=== PATIENT | female | born 1995 | race Caucasian/White ===

== ENCOUNTER 2017-02-16 14:28 | Inpatient (IN) | payer MEDICAID, OTHER ==
[~2017-02-16] VITALS: Ht 165.1 cm; Wt 59.0 kg
[~2017-02-16 14:28] MED LIST: FLUO10CA21 PO
[2017-02-16 16:48] LABS: AMPHET/METH SCREEN,URINE NEGATIVE (NEGATIVE); BARBITURATE SCREEN, URINE NEGATIVE (NEGATIVE); BENZODIAZEPINES SCREEN,URINE NEGATIVE (NEGATIVE); CANNABINOID SCREEN,URINE POSITIVE (NEGATIVE); COCAINE SCREEN,URINE NEGATIVE (NEGATIVE); METHADONE SCREEN, URINE NEGATIVE (NEGATIVE); OPIATE SCREEN,URINE NEGATIVE (NEGATIVE)
[2017-02-16 16:50] LABS: PHENCYCLIDINE SCREEN,URINE NEGATIVE (NEGATIVE)
[2017-02-16] MEDS ORDERED: LORazepam 2 MG/ML VIAL IM ONE (18:15)
[2017-02-16] MEDS ORDERED: HALOPERIDOL LACTATE 5 MG/ML VIAL IM ONE (18:15)
[2017-02-16] MEDS ORDERED: DiphenhydrAMINE HCL 50 MG/ML VIAL IM ONE (18:15)
[2017-02-16] MEDS ORDERED: ZOLPIDEM TARTRATE 10 MG TABLET PO PRN (18:30)
[2017-02-16 18:52] LABS: BASOPHILS % (AUTO) 0.3 % (0.0-2.0); EOSINOPHILS % (AUTO) 0.7 % (1.0-6.0); HEMATOCRIT 39.6 % (36-46); HEMOGLOBIN 13.4 g/dL (12.0-16.0); LYMPHOCYTES # (AUTO) 2.4 K/uL (1.0-4.8); LYMPHOCYTES % (AUTO) 21.9 % (22.0-44.0); MEAN CORPUSCULAR HEMOGLOBIN 32.2 pg (26.0-34.0); MEAN CORPUSCULAR HGB CONC 33.8 G/dL (31.0-37.0); MEAN CORPUSCULAR VOLUME 95 fL (80-100); MONOCYTES # (AUTO) 0.7 K/uL (0.1-1.0); MONOCYTES % (AUTO) 6.6 % (2.0-9.0); NEUTROPHILS # (AUTO) 7.6 K/uL (1.8-7.7); NEUTROPHILS % (AUTO) 70.5 % (40.0-70.0); PLATELET COUNT (AUTO) 240 K/uL (150-450); RED BLOOD CELL COUNT(AUTO) 4.15 MIL/uL (4.00-5.20); RED CELL DISTRIBUTION WIDTH 12.7 % (11.5-14.5)
[2017-02-16 19:07] LABS: ANION GAP 8 mmol/L (8-16); CALCIUM, TOTAL 9.4 mg/dL (8.8-10.5); CARBON DIOXIDE 29 mmol/L (22-29); CHLORIDE 101 mmol/L (98-107); CREATININE 0.65 mg/dL (0.60-1.30); GLOMERULAR FILTR. RATE CALC > 60 mL/min (>60); GLUCOSE,RANDOM 114 mg/dL (70-110); POTASSIUM 3.6 mmol/L (3.5-5.1); SODIUM SERUM 138 mmol/L (136-145); UREA NITROGEN, BLOOD 11 mg/dL (7-18)
[2017-02-16 19:11] LABS: ALANINE AMINOTRANSFERASE 28 U/L (12-78); ALBUMIN 3.5 g/dL (3.4-5.0); ALKALINE PHOSPHATASE 70 U/L (46-116); ASPARTATE AMINOTRANSFERASE 17 U/L (15-37); BILIRUBIN,TOTAL 0.3 mg/dL (0.1-1.0); TOTAL PROTEIN, SERUM 6.5 g/dL (6.4-8.2)
[2017-02-17 08:20] LABS: CHOL/HDL RATIO 3.4 (3.9-5.7)
[2017-02-17 12:01] VITALS: BP 110/64
[2017-02-17] MEDS ORDERED: INFLUENZA VIRUS VACCINE QVS 2017-18 (3YR+)/PF 60 MCG/0.5 ML SYRINGE IM ONE (12:30)
[2017-02-17] MEDS: HALOPERIDOL 5 MG TABLET PO PRN (13:25)
[2017-02-17] MEDS: LORazepam 2 MG TABLET PO PRN (13:26)
[2017-02-17 16:07] VITALS: BP 104/60
[2017-02-18 05:24] VITALS: BP 101/60
[2017-02-18] MEDS: LORazepam 2 MG TABLET PO PRN ×2 (05:47→16:04)
[2017-02-18] MEDS ORDERED: MAG HYDROX/AL HYDROX/SIMETH ES 30 ML SUSPENSION UDCUP PO PRN (08:00)
[2017-02-18] MEDS ORDERED: BENZOCAINE/MENTHOL LOZENGE MM PRN (08:00)
[2017-02-18] MEDS ORDERED: PETROLATUM,WHITE 71 GM JELLY TP PRN (08:00)
[2017-02-18] MEDS ORDERED: BACITRACIN 28.4 GM OINTMENT TP PRN (08:00)
[2017-02-18] MEDS ORDERED: MAGNESIUM HYDROXIDE SUSPENSION 30 ML UDCUP PO PRN (08:00)
[2017-02-18] MEDS ORDERED: ACETAMINOPHEN 325 MG TABLET PO PRN (08:00)
[2017-02-18] MEDS ORDERED: LOPERAMIDE HCL 2 MG CAPSULE PO PRN (08:00)
[2017-02-18] MEDS ORDERED: ONDANSETRON HCL 4 MG TABLET PO PRN (08:00)
[2017-02-18] MEDS ORDERED: IBUPROFEN 600 MG TABLET PO PRN (08:00)
[2017-02-18] MEDS ORDERED: CloNIDine HCL 0.1 MG TABLET PO PRN (08:00)
[2017-02-18] MEDS ORDERED: ALBUTEROL SULFATE HFA 90 MCG/PUFF 8 GM INHALER IH PRN (08:00)
[2017-02-18 08:30] VITALS: BP 118/71
[2017-02-18] MEDS ORDERED: SERTRALINE HCL 50 MG TABLET PO SCH (09:00)
[2017-02-18] MEDS: NICOTINE 21 MG/24 HOUR PATCH TD SCH (09:01)
[2017-02-18] MEDS: HALOPERIDOL 5 MG TABLET PO PRN (16:05)
[2017-02-18 16:42] VITALS: BP 115/75
[2017-02-19 06:15] VITALS: BP 113/75
[2017-02-19 08:42] VITALS: BP 103/60
[2017-02-19] MEDS ORDERED: SERTRALINE HCL 100 MG TABLET PO SCH (09:00)
[2017-02-19] MEDS: NICOTINE 21 MG/24 HOUR PATCH TD SCH (09:15)
[2017-02-19] MEDS: LORazepam 2 MG TABLET PO PRN (10:11)
[2017-02-19] MEDS ORDERED: SERT100T12 PO (11:19)
== END 2017-02-19 14:11 | disposition home or self-care (01) | DRG 753 ==
LOC: EMS 14:32 → B3A 02-17 10:33
PROVIDERS: ADMIT Psychiatry & Neurology Child & Adolescent Psychiatry; ATTEND Psychiatry & Neurology Child & Adolescent Psychiatry
PROC: 3E0234Z Introduction of Serum, Toxoid and Vaccine into Muscle, Percutaneous Approach (ICD-10-PCS; principal; 2017-02-17)
DX: F31.9 Bipolar disorder, unspecified (principal); R45.851 Suicidal ideations; F17.200 Nicotine dependence, unspecified, uncomplicated; F12.90 Cannabis use, unspecified, uncomplicated; F42.9 Obsessive-compulsive disorder, unspecified; Z76.5 Malingerer [conscious simulation]; Z88.2 Allergy status to sulfonamides; Z23 Encounter for immunization
CPT/HCPCS: 87081; 90471; 96372; 99285; G0480

== ENCOUNTER 2018-02-22 15:39 | Inpatient (IN) | payer MEDICAID ==
[~2018-02-22] VITALS: Ht 165.1 cm; Wt 65.3 kg
[~2018-02-22 15:39] MED LIST changes: -FLUO10CA21 PO; +PREN1TAB89 PO
[2018-02-22 16:09] VITALS: BP 114/73
[2018-02-22] MEDS ORDERED: HALOPERIDOL 5 MG TABLET PO PRN (16:15)
[2018-02-22] MEDS ORDERED: MIRT15 PO (16:33)
[2018-02-22] MEDS ORDERED: NICOTINE 14 MG/24 HOUR PATCH TD PRN (17:30)
[2018-02-22] MEDS ORDERED: MAG HYDROX/AL HYDROX/SIMETH ES 30 ML SUSPENSION UDCUP PO PRN (17:30)
[2018-02-22] MEDS ORDERED: MAGNESIUM HYDROXIDE SUSPENSION 30 ML UDCUP PO PRN (17:30)
[2018-02-22] MEDS ORDERED: LOPERAMIDE HCL 2 MG CAPSULE PO PRN (17:30)
[2018-02-22] MEDS ORDERED: PETROLATUM,WHITE 71 GM JELLY TP PRN (17:30)
[2018-02-22] MEDS ORDERED: CloNIDine HCL 0.1 MG TABLET PO PRN (17:30)
[2018-02-22] MEDS ORDERED: DOCUSATE SODIUM 100 MG CAPSULE PO PRN (17:30)
[2018-02-22] MEDS ORDERED: ACETAMINOPHEN 325 MG TABLET PO PRN (17:30)
[2018-02-22] MEDS ORDERED: ALBUTEROL SULFATE HFA 90 MCG/PUFF 8 GM INHALER IH PRN (17:30)
[2018-02-22] MEDS ORDERED: GuaiFENesin/D-METHORPHAN [SUGAR-FREE] 200-20MG/10 ML SYRUP UDCUP PO PRN (17:30)
[2018-02-22 20:04] VITALS: BP 117/70
[2018-02-23 06:11] VITALS: BP 120/81
[2018-02-23 07:56] LABS: BASOPHILS % (AUTO) 0.5 % (0.0-2.0); HEMATOCRIT 38.1 % (36-46); HEMOGLOBIN 12.5 g/dL (12.0-16.0); LYMPHOCYTES % (AUTO) 40.7 % (22.0-44.0); MEAN CORPUSCULAR HEMOGLOBIN 30.6 pg (26.0-34.0); MEAN CORPUSCULAR HGB CONC 32.8 G/dL (31.0-37.0); MEAN CORPUSCULAR VOLUME 94 fL (80-100); MONOCYTES # (AUTO) 0.7 K/uL (0.1-1.0); MONOCYTES % (AUTO) 9.1 % (2.0-9.0); NEUTROPHILS # (AUTO) 3.5 K/uL (1.8-7.7); NEUTROPHILS % (AUTO) 47.7 % (40.0-70.0); PLATELET COUNT (AUTO) 216 K/uL (150-450); RED BLOOD CELL COUNT(AUTO) 4.07 MIL/uL (4.00-5.20); RED CELL DISTRIBUTION WIDTH 13.1 % (11.5-14.5)
[2018-02-23 08:25] VITALS: BP_SYST 107; BP_SYST 90; BP_DIAS 56; BP_DIAS 60
[2018-02-23 08:26] LABS: ALANINE AMINOTRANSFERASE 24 U/L (12-78); ALBUMIN 3.2 g/dL (3.4-5.0); ALKALINE PHOSPHATASE 42 U/L (46-116); ANION GAP 6 mmol/L (8-16); ASPARTATE AMINOTRANSFERASE 22 U/L (15-37); BILIRUBIN,TOTAL 0.4 mg/dL (0.1-1.0); CALCIUM, TOTAL 8.7 mg/dL (8.8-10.5); CARBON DIOXIDE 28 mmol/L (22-29); CHLORIDE 107 mmol/L (98-107); CHOL/HDL RATIO 2.8 (3.9-5.7); CHOLESTEROL 112 mg/dL (131-200); CREATININE 0.46 mg/dL (0.60-1.30); GLOMERULAR FILTR. RATE CALC > 60 mL/min (>60); GLUCOSE,RANDOM 83 mg/dL (70-110); HCG,QUANTITATIVE < 1 mIU/mL (0-6); HDL CHOLESTEROL 40 mg/dL (40-60); LDL CHOL (CALC.) 66 mg/dL (0-130); POTASSIUM 4.3 mmol/L (3.5-5.1); SODIUM SERUM 141 mmol/L (136-145); THYROID STIMULATING HORMONE 0.28 uIU/mL (0.36-3.74); TOTAL PROTEIN, SERUM 5.7 g/dL (6.4-8.2); TRIGLYCERIDES 31 mg/dL (15-150); UREA NITROGEN, BLOOD 9 mg/dL (7-18)
[2018-02-23 08:30] LABS: AMPHET/METH SCREEN,URINE POSITIVE (NEGATIVE); BARBITURATE SCREEN, URINE NEGATIVE (NEGATIVE); BENZODIAZEPINES SCREEN,URINE NEGATIVE (NEGATIVE); CANNABINOID SCREEN,URINE POSITIVE (NEGATIVE); COCAINE SCREEN,URINE NEGATIVE (NEGATIVE); METHADONE SCREEN, URINE NEGATIVE (NEGATIVE); OPIATE SCREEN,URINE POSITIVE (NEGATIVE)
[2018-02-23 08:34] LABS: PHENCYCLIDINE SCREEN,URINE NEGATIVE (NEGATIVE)
[2018-02-23 08:38] LABS: HEMOGLOBIN A1C 5.2 % (4.5-6.2)
[2018-02-23 09:08] LABS: APPEARANCE,URINE TURBID (CLEAR); BILIRUBIN,URINE NEGATIVE (NEGATIVE); GLUCOSE, URINE (UA) NEGATIVE (NEGATIVE); KETONES,URINE NEGATIVE (NEGATIVE); LEUKOCYTE ESTERASE ,URINE LARGE (NEGATIVE); NITRATE,URINE NEGATIVE (NEGATIVE); OCCULT BLOOD,URINE NEGATIVE (NEGATIVE); PH,URINE 5.5 (5.0-8.0); PROTEIN,URINE NEGATIVE (NEGATIVE); UROBILINOGEN,URINE 0.2 mg/dL (<=1.0)
[2018-02-23] MEDS: BACITRACIN 28.4 GM OINTMENT TP SCH ×2 (09:17→16:10)
[2018-02-23] MEDS: DOXYCYCLINE HYCLATE 100 MG CAPSULE PO SCH ×2 (09:17→16:10)
[2018-02-23 11:32] LABS: BACTERIA,URINE Moderate /HPF (None Seen); SQUAMOUS EPITHELIAL CELL,UR Moderate /LPF (None Seen)
[2018-02-23] MEDS: CEPHALEXIN MONOHYDRATE 500 MG CAPSULE PO SCH ×2 (14:09→16:10)
[2018-02-23 16:48] VITALS: BP 121/71
[2018-02-23] MEDS: SERTRALINE HCL 100 MG TABLET PO SCH (20:00)
[2018-02-23] MEDS: ZOLPIDEM TARTRATE 5 MG TABLET PO PRN (20:05)
[2018-02-24 00:45] VITALS: BP 110/65
[2018-02-24 08:42] VITALS: BP 114/66
[2018-02-24] MEDS: BACITRACIN 28.4 GM OINTMENT TP SCH ×2 (09:19→16:49)
[2018-02-24] MEDS: CEPHALEXIN MONOHYDRATE 500 MG CAPSULE PO SCH ×3 (09:19→16:56)
[2018-02-24] MEDS: DOXYCYCLINE HYCLATE 100 MG CAPSULE PO SCH ×2 (09:19→16:49)
[2018-02-24] MEDS: ONDANSETRON HCL 4 MG TABLET PO PRN (11:00)
[2018-02-24 17:11] VITALS: BP 104/61
[2018-02-24] MEDS: SERTRALINE HCL 100 MG TABLET PO SCH (20:24)
[2018-02-24] MEDS: ZOLPIDEM TARTRATE 5 MG TABLET PO PRN (20:40)
[2018-02-25 03:18] VITALS: BP 137/79
[2018-02-25 08:17] VITALS: BP 123/76
[2018-02-25] MEDS: DOXYCYCLINE HYCLATE 100 MG CAPSULE PO SCH ×2 (08:34→16:12)
[2018-02-25] MEDS: CEPHALEXIN MONOHYDRATE 500 MG CAPSULE PO SCH ×3 (08:34→16:12)
[2018-02-25] MEDS: BACITRACIN 28.4 GM OINTMENT TP SCH ×2 (08:34→17:00)
[2018-02-25 16:11] VITALS: BP 103/69
[2018-02-25] MEDS: SERTRALINE HCL 100 MG TABLET PO SCH (20:22)
[2018-02-25] MEDS: ZOLPIDEM TARTRATE 5 MG TABLET PO PRN (20:22)
[2018-02-26 06:18] VITALS: BP 110/68
[2018-02-26 08:06] VITALS: BP 116/62
[2018-02-26] MEDS: DOXYCYCLINE HYCLATE 100 MG CAPSULE PO SCH ×2 (09:23→16:03)
[2018-02-26] MEDS: BACITRACIN 28.4 GM OINTMENT TP SCH ×2 (09:23→16:03)
[2018-02-26] MEDS: CEPHALEXIN MONOHYDRATE 500 MG CAPSULE PO SCH ×3 (09:23→16:03)
[2018-02-26 16:06] VITALS: BP 121/76
[2018-02-26] MEDS: SERTRALINE HCL 100 MG TABLET PO SCH (19:39)
[2018-02-26] MEDS: TraZODone HCL 100 MG TABLET PO SCH (19:39)
[2018-02-27 00:43] VITALS: BP 102/63
[2018-02-27 08:24] VITALS: BP 100/60
[2018-02-27] MEDS: DOXYCYCLINE HYCLATE 100 MG CAPSULE PO SCH ×2 (08:29→16:25)
[2018-02-27] MEDS: BACITRACIN 28.4 GM OINTMENT TP SCH ×2 (08:29→16:25)
[2018-02-27] MEDS: CEPHALEXIN MONOHYDRATE 500 MG CAPSULE PO SCH ×3 (08:29→16:25)
[2018-02-27 16:13] VITALS: BP 105/69
[2018-02-27] MEDS: TraZODone HCL 100 MG TABLET PO SCH (20:07)
[2018-02-27] MEDS: SERTRALINE HCL 100 MG TABLET PO SCH (20:07)
[2018-02-28 01:27] VITALS: BP 104/65
[2018-02-28] MEDS: CEPHALEXIN MONOHYDRATE 500 MG CAPSULE PO SCH ×3 (08:36→16:12)
[2018-02-28] MEDS: DOXYCYCLINE HYCLATE 100 MG CAPSULE PO SCH ×2 (08:36→16:12)
[2018-02-28] MEDS: BACITRACIN 28.4 GM OINTMENT TP SCH ×2 (08:37→16:12)
[2018-02-28 09:28] VITALS: BP 112/69
[2018-02-28 12:21] VITALS: BP 110/70
[2018-02-28] MEDS: IBUPROFEN 400 MG TABLET PO PRN (12:21)
[2018-02-28 16:09] VITALS: BP 114/74
[2018-02-28] MEDS: LORazepam 2 MG TABLET PO PRN (16:12)
[2018-02-28] MEDS: TraZODone HCL 100 MG TABLET PO SCH (20:14)
[2018-02-28] MEDS: SERTRALINE HCL 100 MG TABLET PO SCH (20:14)
[2018-02-28] MEDS: ZOLPIDEM TARTRATE 5 MG TABLET PO PRN (20:26)
[2018-03-01 00:45] VITALS: BP 103/62
[2018-03-01 08:27] VITALS: BP 106/62
[2018-03-01] MEDS: BACITRACIN 28.4 GM OINTMENT TP SCH ×2 (08:33→16:25)
[2018-03-01] MEDS: CEPHALEXIN MONOHYDRATE 500 MG CAPSULE PO SCH ×3 (08:34→16:24)
[2018-03-01] MEDS: DOXYCYCLINE HYCLATE 100 MG CAPSULE PO SCH ×2 (08:34→16:24)
[2018-03-01 16:27] VITALS: BP 110/66
[2018-03-01] MEDS: LORazepam 2 MG TABLET PO PRN (16:33)
[2018-03-01] MEDS: ONDANSETRON HCL 4 MG TABLET PO PRN (17:28)
[2018-03-01] MEDS: ZOLPIDEM TARTRATE 5 MG TABLET PO PRN (20:12)
[2018-03-01] MEDS: SERTRALINE HCL 100 MG TABLET PO SCH (20:12)
[2018-03-01] MEDS: TraZODone HCL 100 MG TABLET PO SCH (20:12)
[2018-03-01] MEDS: IBUPROFEN 400 MG TABLET PO PRN (21:42)
[2018-03-01 21:45] VITALS: BP 114/70
[2018-03-02 08:11] VITALS: BP 140/76
[2018-03-02] MEDS: BACITRACIN 28.4 GM OINTMENT TP SCH ×2 (09:01→17:05)
[2018-03-02] MEDS: CEPHALEXIN MONOHYDRATE 500 MG CAPSULE PO SCH ×2 (09:01→12:45)
[2018-03-02 16:08] VITALS: BP 114/64
[2018-03-02] MEDS: LORazepam 2 MG TABLET PO PRN (20:19)
[2018-03-02] MEDS: TraZODone HCL 100 MG TABLET PO SCH (20:54)
[2018-03-02] MEDS: SERTRALINE HCL 100 MG TABLET PO SCH (20:54)
[2018-03-03 06:15] VITALS: BP 128/82
[2018-03-03 08:24] VITALS: BP 100/60
[2018-03-03] MEDS: BACITRACIN 28.4 GM OINTMENT TP SCH ×2 (08:36→17:21)
[2018-03-03 16:11] VITALS: BP 110/67
[2018-03-03] MEDS: SERTRALINE HCL 100 MG TABLET PO SCH (20:02)
[2018-03-03] MEDS: TraZODone HCL 100 MG TABLET PO SCH (20:02)
[2018-03-03] MEDS: ZOLPIDEM TARTRATE 5 MG TABLET PO PRN (21:17)
[2018-03-04 06:20] VITALS: BP 118/71
[2018-03-04 08:28] VITALS: BP 102/60
[2018-03-04] MEDS: BACITRACIN 28.4 GM OINTMENT TP SCH ×2 (09:25→17:02)
[2018-03-04 18:34] VITALS: BP 100/62
[2018-03-04] MEDS ORDERED: LORazepam 2 MG TABLET PO PRN (18:45)
[2018-03-04] MEDS ORDERED: ZOLPIDEM TARTRATE 5 MG TABLET PO PRN (18:45)
[2018-03-04] MEDS: SERTRALINE HCL 100 MG TABLET PO SCH (20:16)
[2018-03-04] MEDS: TraZODone HCL 100 MG TABLET PO SCH (20:16)
[2018-03-05 07:18] VITALS: BP 110/68
[2018-03-05 08:06] VITALS: BP 103/65
[2018-03-05 17:50] VITALS: BP 112/65
[2018-03-05] MEDS: IBUPROFEN 400 MG TABLET PO PRN (17:51)
[2018-03-05] MEDS: SERTRALINE HCL 100 MG TABLET PO SCH (20:05)
[2018-03-05] MEDS: TraZODone HCL 100 MG TABLET PO SCH (20:06)
[2018-03-06 04:52] VITALS: BP 109/75
[2018-03-06 08:07] VITALS: BP 100/64
[2018-03-06] MEDS ORDERED: SERT100T12 PO (12:58)
[2018-03-06] MEDS ORDERED: TRAZ-220 PO (12:58)
== END 2018-03-06 14:15 | disposition home or self-care (01) | DRG 751 ==
LOC: B2S 16:28 → B3A 03-01 21:42
PROVIDERS: ADMIT Psychiatry & Neurology Psychiatry; ATTEND Psychiatry & Neurology Psychiatry
DX: F33.2 Major depressive disorder, recurrent severe without psychotic features (principal); E32.8 Other diseases of thymus; R45.851 Suicidal ideations; F10.10 Alcohol abuse, uncomplicated; F12.90 Cannabis use, unspecified, uncomplicated; F41.9 Anxiety disorder, unspecified; F19.10 Other psychoactive substance abuse, uncomplicated; N39.0 Urinary tract infection, site not specified; Z71.41 Alcohol abuse counseling and surveillance of alcoholic; Z79.899 Other long term (current) drug therapy; Z71.51 Drug abuse counseling and surveillance of drug abuser
CPT/HCPCS: 80307; 83036; 84439; 84443; 87086; Q0162

== ENCOUNTER 2018-05-08 18:31 | Inpatient (IN) | payer MEDICAID ==
[~2018-05-08] VITALS: Ht 165.1 cm; Wt 65.9 kg
[~2018-05-08 18:31] MED LIST changes: -PREN1TAB89 PO; +SERT100T12 PO; +TRAZ-220 PO
[2018-05-08] MEDS ORDERED: HALOPERIDOL 5 MG TABLET PO PRN (19:00)
[2018-05-08 20:30] VITALS: BP 128/78
[2018-05-08] MEDS ORDERED: DOCUSATE SODIUM 100 MG CAPSULE PO PRN (20:45)
[2018-05-08] MEDS ORDERED: GuaiFENesin/D-METHORPHAN [SUGAR-FREE] 200-20MG/10 ML SYRUP UDCUP PO PRN (20:45)
[2018-05-08] MEDS ORDERED: NICOTINE 14 MG/24 HOUR PATCH TD PRN (20:45)
[2018-05-08] MEDS ORDERED: ACETAMINOPHEN 325 MG TABLET PO PRN (20:45)
[2018-05-08] MEDS ORDERED: CloNIDine HCL 0.1 MG TABLET PO PRN (20:45)
[2018-05-08] MEDS ORDERED: LOPERAMIDE HCL 2 MG CAPSULE PO PRN (20:45)
[2018-05-08] MEDS ORDERED: ALBUTEROL SULFATE HFA 90 MCG/PUFF 8 GM INHALER IH PRN (20:45)
[2018-05-08] MEDS ORDERED: ONDANSETRON HCL 4 MG TABLET PO PRN (20:45)
[2018-05-08] MEDS ORDERED: IBUPROFEN 400 MG TABLET PO PRN (20:45)
[2018-05-08] MEDS ORDERED: MAG HYDROX/AL HYDROX/SIMETH ES 30 ML SUSPENSION UDCUP PO PRN (20:45)
[2018-05-08] MEDS ORDERED: MAGNESIUM HYDROXIDE SUSPENSION 30 ML UDCUP PO PRN (20:45)
[2018-05-08] MEDS ORDERED: PETROLATUM,WHITE 28 GM JELLY TP PRN (20:45)
[2018-05-08] MEDS: LORazepam 2 MG TABLET PO PRN (22:03)
[2018-05-09 07:11] VITALS: BP 135/89
[2018-05-09 08:24] VITALS: BP 103/61
[2018-05-09 08:52] LABS: BASOPHILS % (AUTO) 0.6 % (0.0-2.0); EOSINOPHILS % (AUTO) 1.9 % (1.0-6.0); HEMATOCRIT 40.5 % (36-46); HEMOGLOBIN 13.4 g/dL (12.0-16.0); LYMPHOCYTES # (AUTO) 3.2 K/uL (1.0-4.8); LYMPHOCYTES % (AUTO) 49.2 % (22.0-44.0); MEAN CORPUSCULAR HEMOGLOBIN 30.4 pg (26.0-34.0); MEAN CORPUSCULAR VOLUME 92 fL (80-100); MONOCYTES # (AUTO) 0.5 K/uL (0.1-1.0); MONOCYTES % (AUTO) 7.8 % (2.0-9.0); NEUTROPHILS # (AUTO) 2.6 K/uL (1.8-7.7); NEUTROPHILS % (AUTO) 40.5 % (40.0-70.0); PLATELET COUNT (AUTO) 204 K/uL (150-450); RED BLOOD CELL COUNT(AUTO) 4.41 MIL/uL (4.00-5.20); RED CELL DISTRIBUTION WIDTH 13.7 % (11.5-14.5)
[2018-05-09 09:44] LABS: HEMOGLOBIN A1C 5.4 % (4.5-6.2)
[2018-05-09 10:00] LABS: ALANINE AMINOTRANSFERASE 22 U/L (12-78); ALBUMIN 3.7 g/dL (3.4-5.0); ALKALINE PHOSPHATASE 57 U/L (46-116); ANION GAP 11 mmol/L (8-16); ASPARTATE AMINOTRANSFERASE 18 U/L (15-37); BILIRUBIN,TOTAL 0.3 mg/dL (0.1-1.0); CALCIUM, TOTAL 9.2 mg/dL (8.8-10.5); CARBON DIOXIDE 23 mmol/L (22-29); CHLORIDE 107 mmol/L (98-107); CHOL/HDL RATIO 2.9 (3.9-5.7); CHOLESTEROL 117 mg/dL (131-200); CREATININE 0.64 mg/dL (0.60-1.30); FREE T4 (FREE THYROXINE) 1.12 ng/dL (0.76-1.46); GLOMERULAR FILTR. RATE CALC > 60 mL/min (>60); GLUCOSE,RANDOM 97 mg/dL (70-110); HCG,QUANTITATIVE < 1 mIU/mL (0-6); HDL CHOLESTEROL 41 mg/dL (40-60); LDL CHOL (CALC.) 70 mg/dL (0-130); POTASSIUM 3.8 mmol/L (3.5-5.1); SODIUM SERUM 141 mmol/L (136-145); THYROID STIMULATING HORMONE 0.88 uIU/mL (0.36-3.74); TOTAL PROTEIN, SERUM 6.5 g/dL (6.4-8.2); TRIGLYCERIDES 32 mg/dL (15-150); UREA NITROGEN, BLOOD 14 mg/dL (7-18)
[2018-05-09] MEDS: LORazepam 2 MG TABLET PO PRN (12:39)
[2018-05-09] MEDS: SERTRALINE HCL 50 MG TABLET PO SCH (12:39)
[2018-05-09 16:00] VITALS: BP 124/60
[2018-05-09] MEDS: RisperiDONE 1 MG TABLET PO SCH (20:28)
[2018-05-09] MEDS: ZOLPIDEM TARTRATE 10 MG TABLET PO PRN (21:16)
[2018-05-10 08:18] VITALS: BP 120/59
[2018-05-10] MEDS: SERTRALINE HCL 50 MG TABLET PO SCH (08:34)
[2018-05-10 16:22] VITALS: BP 124/60
[2018-05-10] MEDS: RisperiDONE 1 MG TABLET PO SCH (20:18)
[2018-05-10] MEDS: ZOLPIDEM TARTRATE 10 MG TABLET PO PRN (21:28)
[2018-05-11 05:14] VITALS: BP 114/71
[2018-05-11 08:32] VITALS: BP 114/59
[2018-05-11] MEDS: SERTRALINE HCL 50 MG TABLET PO SCH (08:33)
[2018-05-11 10:41] LABS: APPEARANCE,URINE CLEAR (CLEAR); BILIRUBIN,URINE NEGATIVE (NEGATIVE); GLUCOSE, URINE (UA) NEGATIVE (NEGATIVE); KETONES,URINE NEGATIVE (NEGATIVE); LEUKOCYTE ESTERASE ,URINE NEGATIVE (NEGATIVE); NITRATE,URINE NEGATIVE (NEGATIVE); OCCULT BLOOD,URINE NEGATIVE (NEGATIVE); PH,URINE 6.5 (5.0-8.0); PROTEIN,URINE NEGATIVE (NEGATIVE); UROBILINOGEN,URINE 0.2 mg/dL (<=1.0)
[2018-05-11 10:51] LABS: AMPHET/METH SCREEN,URINE NEGATIVE (NEGATIVE); BARBITURATE SCREEN, URINE NEGATIVE (NEGATIVE); BENZODIAZEPINES SCREEN,URINE NEGATIVE (NEGATIVE); CANNABINOID SCREEN,URINE NEGATIVE (NEGATIVE); COCAINE SCREEN,URINE NEGATIVE (NEGATIVE); METHADONE SCREEN, URINE NEGATIVE (NEGATIVE); OPIATE SCREEN,URINE NEGATIVE (NEGATIVE)
[2018-05-11 10:52] LABS: PHENCYCLIDINE SCREEN,URINE NEGATIVE (NEGATIVE)
[2018-05-11 17:17] VITALS: BP 110/66
[2018-05-11] MEDS: RisperiDONE 1 MG TABLET PO SCH (20:36)
[2018-05-11] MEDS: ZOLPIDEM TARTRATE 10 MG TABLET PO PRN (21:03)
[2018-05-12 04:19] VITALS: BP 109/60
[2018-05-12 08:30] VITALS: BP 107/64
[2018-05-12] MEDS: SERTRALINE HCL 50 MG TABLET PO SCH ×2 (09:00→09:45)
[2018-05-12] MEDS: DiphenhydrAMINE HCL 25 MG CAPSULE PO PRN ×2 (12:00→19:31)
[2018-05-12 16:50] VITALS: BP 106/65
[2018-05-12] MEDS: RisperiDONE 1 MG TABLET PO SCH (21:12)
[2018-05-12] MEDS: ZOLPIDEM TARTRATE 10 MG TABLET PO PRN (21:12)
[2018-05-13] MEDS: DiphenhydrAMINE HCL 25 MG CAPSULE PO PRN ×2 (03:53→16:17)
[2018-05-13 03:54] VITALS: BP 113/73
[2018-05-13 08:20] VITALS: BP 109/59
[2018-05-13] MEDS: SERTRALINE HCL 50 MG TABLET PO SCH (08:32)
[2018-05-13] MEDS ORDERED: DiphenhydrAMINE HCL 50 MG/ML VIAL IM ONE (09:15)
[2018-05-13] MEDS ORDERED: DiphenhydrAMINE HCL 25 MG CAPSULE PO PRN (12:30)
[2018-05-13] MEDS ORDERED: LORazepam 2 MG/ML VIAL ONE (16:44)
[2018-05-13] MEDS ORDERED: HALOPERIDOL LACTATE 5 MG/ML VIAL ONE (16:44)
[2018-05-13] MEDS ORDERED: HALOPERIDOL LACTATE 5 MG/ML VIAL IM ONE (16:45)
[2018-05-13] MEDS ORDERED: LORazepam 2 MG/ML VIAL IM ONE (16:45)
[2018-05-14 08:17] VITALS: BP 100/61
[2018-05-14] MEDS: DiphenhydrAMINE HCL 25 MG CAPSULE PO PRN ×2 (08:53→16:59)
[2018-05-14] MEDS ORDERED: SERTRALINE HCL 100 MG TABLET PO SCH (09:00)
[2018-05-14] MEDS ORDERED: DiphenhydrAMINE HCL 50 MG/ML VIAL IM ONE (09:30)
[2018-05-14 16:55] VITALS: BP 110/64
[2018-05-14] MEDS: ZOLPIDEM TARTRATE 10 MG TABLET PO PRN (21:15)
[2018-05-15 00:07] VITALS: BP 101/62
[2018-05-15] MEDS ORDERED: SERT100T12 PO (04:07)
[2018-05-15] MEDS: DiphenhydrAMINE HCL 25 MG CAPSULE PO PRN (04:25)
== END 2018-05-15 06:35 | disposition home or self-care (01) | DRG 751 ==
LOC: B3A 19:00
DX: F33.3 Major depressive disorder, recurrent, severe with psychotic symptoms (principal); F79 Unspecified intellectual disabilities; F10.10 Alcohol abuse, uncomplicated; F15.10 Other stimulant abuse, uncomplicated; G43.909 Migraine, unspecified, not intractable, without status migrainosus; Z91.5 Personal history of self-harm; F41.9 Anxiety disorder, unspecified; F63.9 Impulse disorder, unspecified; R00.0 Tachycardia, unspecified
CPT/HCPCS: 80307; 83036; 84439; 84443; J1200; J1630; J2060

== ENCOUNTER 2018-08-11 11:32 | Emergency (ER) | payer MEDICAID, OTHER ==
[~2018-08-11] VITALS: Ht 165.1 cm; Wt 59.1 kg
[~2018-08-11 11:32] MED LIST changes: -TRAZ-220 PO
[2018-08-11 13:30] LABS: APPEARANCE,URINE TURBID (CLEAR); BILIRUBIN,URINE NEGATIVE (NEGATIVE); GLUCOSE, URINE (UA) NEGATIVE (NEGATIVE); KETONES,URINE NEGATIVE (NEGATIVE); NITRATE,URINE NEGATIVE (NEGATIVE); OCCULT BLOOD,URINE NEGATIVE (NEGATIVE); PROTEIN,URINE NEGATIVE (NEGATIVE); UROBILINOGEN,URINE 0.2 mg/dL (<=1.0)
[2018-08-11 13:37] LABS: LEUKOCYTE ESTERASE ,URINE MODERATE (NEGATIVE)
[2018-08-11 13:38] LABS: BACTERIA,URINE Many /HPF (None Seen); RBC,URINE 0-2 /HPF (0-2); SQUAMOUS EPITHELIAL CELL,UR Many /LPF (None Seen)
[2018-08-11 13:41] LABS: BASOPHILS % (AUTO) 0.6 % (0.0-2.0); HEMATOCRIT 42.7 % (36-46); HEMOGLOBIN 13.9 g/dL (12.0-16.0); LYMPHOCYTES # (AUTO) 2.1 K/uL (1.0-4.8); LYMPHOCYTES % (AUTO) 35.3 % (22.0-44.0); MEAN CORPUSCULAR HEMOGLOBIN 31.2 pg (26.0-34.0); MEAN CORPUSCULAR HGB CONC 32.6 G/dL (31.0-37.0); MEAN CORPUSCULAR VOLUME 96 fL (80-100); MONOCYTES # (AUTO) 0.4 K/uL (0.1-1.0); MONOCYTES % (AUTO) 6.7 % (2.0-9.0); NEUTROPHILS # (AUTO) 3.3 K/uL (1.8-7.7); NEUTROPHILS % (AUTO) 56.4 % (40.0-70.0); PLATELET COUNT (AUTO) 217 K/uL (150-450); RED BLOOD CELL COUNT(AUTO) 4.46 MIL/uL (4.00-5.20); RED CELL DISTRIBUTION WIDTH 13.7 % (11.5-14.5)
[2018-08-11 13:51] LABS: ANION GAP 13 mmol/L (8-16); CALCIUM, TOTAL 9.3 mg/dL (8.8-10.5); CARBON DIOXIDE 26 mmol/L (22-29); CHLORIDE 107 mmol/L (98-107); CREATININE 0.57 mg/dL (0.60-1.30); GLOMERULAR FILTR. RATE CALC > 60 mL/min (>60); GLUCOSE,RANDOM 91 mg/dL (70-110); POTASSIUM 3.8 mmol/L (3.5-5.1); SODIUM SERUM 146 mmol/L (136-145); UREA NITROGEN, BLOOD 8 mg/dL (7-18)
[2018-08-11 13:54] VITALS: BP 119/64
== END 2018-08-11 14:31 | disposition home or self-care (01) ==
LOC: EMS 11:33
DX: N39.0 Urinary tract infection, site not specified (principal); F31.9 Bipolar disorder, unspecified; F12.90 Cannabis use, unspecified, uncomplicated; F17.210 Nicotine dependence, cigarettes, uncomplicated; Z88.2 Allergy status to sulfonamides
CPT/HCPCS: 87086

== ENCOUNTER 2018-10-05 16:12 | Inpatient (IN) | payer MEDICAID ==
[~2018-10-05] VITALS: Ht 165.1 cm; Wt 58.1 kg
[2018-10-05] MEDS ORDERED: LORazepam 2 MG TABLET PO PRN (18:00)
[2018-10-05] MEDS ORDERED: HALOPERIDOL 5 MG TABLET PO PRN (18:00)
[2018-10-05] MEDS ORDERED: ZOLPIDEM TARTRATE 10 MG TABLET PO PRN (18:00)
[2018-10-05 18:03] VITALS: BP 122/98
[2018-10-05 18:42] VITALS: BP 128/81
[2018-10-05] MEDS ORDERED: NICOTINE 14 MG/24 HOUR PATCH TD PRN (19:30)
[2018-10-05] MEDS ORDERED: PETROLATUM,WHITE 28 GM JELLY TP PRN (19:30)
[2018-10-05] MEDS ORDERED: GuaiFENesin/D-METHORPHAN [SUGAR-FREE] 200-20MG/10 ML SYRUP UDCUP PO PRN (19:30)
[2018-10-05] MEDS ORDERED: ACETAMINOPHEN 325 MG TABLET PO PRN (19:30)
[2018-10-05] MEDS ORDERED: ONDANSETRON HCL 4 MG TABLET PO PRN (19:30)
[2018-10-05] MEDS ORDERED: MAGNESIUM HYDROXIDE SUSPENSION 30 ML UDCUP PO PRN (19:30)
[2018-10-05] MEDS ORDERED: LOPERAMIDE HCL 2 MG CAPSULE PO PRN (19:30)
[2018-10-05] MEDS ORDERED: DOCUSATE SODIUM 100 MG CAPSULE PO PRN (19:30)
[2018-10-05] MEDS ORDERED: ALBUTEROL SULFATE HFA 90 MCG/PUFF 8 GM INHALER IH PRN (19:30)
[2018-10-05] MEDS ORDERED: MAG HYDROX/AL HYDROX/SIMETH ES 30 ML SUSPENSION UDCUP PO PRN (19:30)
[2018-10-05] MEDS ORDERED: CloNIDine HCL 0.1 MG TABLET PO PRN (19:30)
[2018-10-06 06:55] VITALS: BP 126/77
[2018-10-06 08:19] LABS: BASOPHILS % (AUTO) 0.6 % (0.0-2.0); EOSINOPHILS % (AUTO) 1.8 % (1.0-6.0); HEMATOCRIT 39.3 % (36-46); HEMOGLOBIN 12.9 g/dL (12.0-16.0); LYMPHOCYTES # (AUTO) 3.6 K/uL (1.0-4.8); LYMPHOCYTES % (AUTO) 48.1 % (22.0-44.0); MEAN CORPUSCULAR HEMOGLOBIN 31.4 pg (26.0-34.0); MEAN CORPUSCULAR HGB CONC 32.9 G/dL (31.0-37.0); MEAN CORPUSCULAR VOLUME 95 fL (80-100); MONOCYTES # (AUTO) 0.6 K/uL (0.1-1.0); MONOCYTES % (AUTO) 7.4 % (2.0-9.0); NEUTROPHILS # (AUTO) 3.1 K/uL (1.8-7.7); NEUTROPHILS % (AUTO) 42.1 % (40.0-70.0); PLATELET COUNT (AUTO) 209 K/uL (150-450); RED BLOOD CELL COUNT(AUTO) 4.12 MIL/uL (4.00-5.20); RED CELL DISTRIBUTION WIDTH 12.5 % (11.5-14.5)
[2018-10-06 08:25] VITALS: BP 117/66
[2018-10-06 08:32] LABS: HEMOGLOBIN A1C 5.2 % (4.5-6.2)
[2018-10-06 08:58] LABS: APPEARANCE,URINE CLEAR (CLEAR); BILIRUBIN,URINE NEGATIVE (NEGATIVE); GLUCOSE, URINE (UA) NEGATIVE (NEGATIVE); KETONES,URINE TRACE mg/dL (NEGATIVE); LEUKOCYTE ESTERASE ,URINE NEGATIVE (NEGATIVE); NITRATE,URINE NEGATIVE (NEGATIVE); OCCULT BLOOD,URINE NEGATIVE (NEGATIVE); PROTEIN,URINE NEGATIVE (NEGATIVE); UROBILINOGEN,URINE 0.2 mg/dL (<=1.0)
[2018-10-06 09:05] LABS: AMPHET/METH SCREEN,URINE POSITIVE (NEGATIVE); BARBITURATE SCREEN, URINE NEGATIVE (NEGATIVE); BENZODIAZEPINES SCREEN,URINE NEGATIVE (NEGATIVE); CANNABINOID SCREEN,URINE POSITIVE (NEGATIVE); COCAINE SCREEN,URINE POSITIVE (NEGATIVE); METHADONE SCREEN, URINE NEGATIVE (NEGATIVE); OPIATE SCREEN,URINE NEGATIVE (NEGATIVE)
[2018-10-06 09:10] LABS: PHENCYCLIDINE SCREEN,URINE NEGATIVE (NEGATIVE)
[2018-10-06 09:59] LABS: ALANINE AMINOTRANSFERASE 12 U/L (12-78); ALBUMIN 3.7 g/dL (3.4-5.0); ALKALINE PHOSPHATASE 41 U/L (46-116); ANION GAP 13 mmol/L (8-16); ASPARTATE AMINOTRANSFERASE 16 U/L (15-37); BILIRUBIN,TOTAL 0.5 mg/dL (0.1-1.0); CALCIUM, TOTAL 9.4 mg/dL (8.8-10.5); CARBON DIOXIDE 24 mmol/L (22-29); CHLORIDE 102 mmol/L (98-107); CHOL/HDL RATIO 3.1 (3.9-5.7); CHOLESTEROL 147 mg/dL (131-200); CREATININE 0.72 mg/dL (0.60-1.30); GLOMERULAR FILTR. RATE CALC > 60 mL/min (>60); GLUCOSE,RANDOM 90 mg/dL (70-110); HCG,QUANTITATIVE < 1 mIU/mL (0-6); HDL CHOLESTEROL 47 mg/dL (40-60); LDL CHOL (CALC.) 91 mg/dL (0-130); SODIUM SERUM 139 mmol/L (136-145); THYROID STIMULATING HORMONE 0.47 uIU/mL (0.36-3.74); TOTAL PROTEIN, SERUM 6.4 g/dL (6.4-8.2); TRIGLYCERIDES 47 mg/dL (15-150); UREA NITROGEN, BLOOD 13 mg/dL (7-18)
[2018-10-06 10:04] LABS: POTASSIUM 2.8 mmol/L (3.5-5.1)
[2018-10-06] MEDS ORDERED: POTASSIUM CHLORIDE 20 MEQ ER TABLET PO ONE (10:15)
[2018-10-06 16:00] VITALS: BP 117/64
[2018-10-07 06:20] VITALS: BP 109/71
[2018-10-07 08:36] VITALS: BP 119/69
[2018-10-07 16:19] VITALS: BP 116/76
[2018-10-08 06:38] VITALS: BP 110/72
[2018-10-08] MEDS: IBUPROFEN 400 MG TABLET PO PRN (07:13)
[2018-10-08 08:26] VITALS: BP 100/58
[2018-10-08] MEDS: SERTRALINE HCL 50 MG TABLET PO SCH (13:15)
[2018-10-08 16:24] VITALS: BP 134/62
[2018-10-08] MEDS: BENZTROPINE MESYLATE 0.5 MG TABLET PO SCH (16:46)
[2018-10-08] MEDS: FluPHENAZine HCL 10 MG TABLET PO SCH (16:46)
[2018-10-09 06:41] VITALS: BP 129/69
[2018-10-09] MEDS: IBUPROFEN 400 MG TABLET PO PRN (06:46)
[2018-10-09 08:00] VITALS: BP 100/64
[2018-10-09 08:03] LABS: APPEARANCE,URINE CLOUDY (CLEAR); BILIRUBIN,URINE NEGATIVE (NEGATIVE); GLUCOSE, URINE (UA) NEGATIVE (NEGATIVE); KETONES,URINE NEGATIVE (NEGATIVE); LEUKOCYTE ESTERASE ,URINE MODERATE (NEGATIVE); NITRATE,URINE NEGATIVE (NEGATIVE); OCCULT BLOOD,URINE LARGE (NEGATIVE); PH,URINE 6.5 (5.0-8.0); PROTEIN,URINE NEGATIVE (NEGATIVE); UROBILINOGEN,URINE 0.2 mg/dL (<=1.0)
[2018-10-09 08:17] LABS: BACTERIA,URINE None Seen /HPF (None Seen); SQUAMOUS EPITHELIAL CELL,UR Few /LPF (None Seen)
[2018-10-09] MEDS: BENZTROPINE MESYLATE 0.5 MG TABLET PO SCH (08:35)
[2018-10-09] MEDS: FluPHENAZine HCL 10 MG TABLET PO SCH (08:35)
[2018-10-09] MEDS: SERTRALINE HCL 50 MG TABLET PO SCH (08:35)
[2018-10-09] MEDS ORDERED: SERT50TA12 PO (10:30)
[2018-10-09] MEDS ORDERED: BENZ0.5T44 PO (10:30)
[2018-10-09] MEDS ORDERED: FLUP10 PO (10:30)
[2018-10-09] MEDS ORDERED: BENZTROPINE MESYLATE 1 MG TABLET PO ONE (13:15)
[2018-10-09 16:20] VITALS: BP 120/72
== END 2018-10-09 17:52 | disposition home or self-care (01) | DRG 750 ==
LOC: B3A 17:20
PROVIDERS: ADMIT Psychiatry & Neurology Child & Adolescent Psychiatry; ATTEND Psychiatry & Neurology Child & Adolescent Psychiatry
DX: F25.0 Schizoaffective disorder, bipolar type (principal); Z59.0 Homelessness; F19.10 Other psychoactive substance abuse, uncomplicated; F32.9 Major depressive disorder, single episode, unspecified; G44.209 Tension-type headache, unspecified, not intractable; K21.9 Gastro-esophageal reflux disease without esophagitis; F41.9 Anxiety disorder, unspecified; Z71.51 Drug abuse counseling and surveillance of drug abuser
CPT/HCPCS: 80307; 83036; 84132; 84439; 84443; 87086

== ENCOUNTER 2019-03-12 14:28 | Emergency (ER) | payer OTHER ==
[~2019-03-12] VITALS: Ht 165.1 cm; Wt 59.0 kg
[~2019-03-12 14:28] MED LIST changes: +BREX1TAB PO; -SERT100T12 PO
[2019-03-12] MEDS ORDERED: SODIUM CHLORIDE 0.9% 1,000 ML IV ONE (16:04)
[2019-03-12 16:36] LABS: BASOPHILS % (AUTO) 0.7 % (0.0-2.0); EOSINOPHILS % (AUTO) 0.4 % (1.0-6.0); HEMATOCRIT 39.2 % (36-46); HEMOGLOBIN 13.3 g/dL (12.0-16.0); LYMPHOCYTES # (AUTO) 2.6 K/uL (1.0-4.8); LYMPHOCYTES % (AUTO) 19.1 % (22.0-44.0); MEAN CORPUSCULAR HGB CONC 33.8 G/dL (31.0-37.0); MEAN CORPUSCULAR VOLUME 92 fL (80-100); MONOCYTES # (AUTO) 0.8 K/uL (0.1-1.0); MONOCYTES % (AUTO) 5.7 % (2.0-9.0); NEUTROPHILS # (AUTO) 10.1 K/uL (1.8-7.7); NEUTROPHILS % (AUTO) 74.1 % (40.0-70.0); PLATELET COUNT (AUTO) 282 K/uL (150-450); RED BLOOD CELL COUNT(AUTO) 4.29 MIL/uL (4.00-5.20); RED CELL DISTRIBUTION WIDTH 12.5 % (11.5-14.5)
[2019-03-12 16:46] LABS: ANION GAP 9 mmol/L (8-16); CALCIUM, TOTAL 9.4 mg/dL (8.8-10.5); CARBON DIOXIDE 27 mmol/L (22-29); CHLORIDE 101 mmol/L (98-107); CREATININE 0.53 mg/dL (0.60-1.30); GLOMERULAR FILTR. RATE CALC > 60 mL/min (>60); GLUCOSE,RANDOM 108 mg/dL (70-110); POTASSIUM 3.6 mmol/L (3.5-5.1); SODIUM SERUM 137 mmol/L (136-145); UREA NITROGEN, BLOOD 6 mg/dL (7-18)
[2019-03-12 17:03] LABS: ALANINE AMINOTRANSFERASE 40 U/L (12-78); ALBUMIN 3.7 g/dL (3.4-5.0); ALKALINE PHOSPHATASE 75 U/L (46-116); ASPARTATE AMINOTRANSFERASE 22 U/L (15-37); BILIRUBIN,TOTAL 0.3 mg/dL (0.1-1.0); HCG,QUANTITATIVE < 1 mIU/mL (0-6); LIPASE 100 U/L (73-393); TOTAL PROTEIN, SERUM 7.4 g/dL (6.4-8.2)
[2019-03-12 17:19] LABS: LACTIC ACID 1.1 mmol/L (0.4-2.0)
[2019-03-12 17:22] LABS: APPEARANCE,URINE CLOUDY (CLEAR); BILIRUBIN,URINE NEGATIVE (NEGATIVE); GLUCOSE, URINE (UA) NEGATIVE (NEGATIVE); KETONES,URINE NEGATIVE (NEGATIVE); LEUKOCYTE ESTERASE ,URINE LARGE (NEGATIVE); NITRATE,URINE NEGATIVE (NEGATIVE); OCCULT BLOOD,URINE TRACE (NEGATIVE); PH,URINE 6.5 (5.0-8.0); PROTEIN,URINE NEGATIVE (NEGATIVE); UROBILINOGEN,URINE 0.2 mg/dL (<=1.0)
[2019-03-12 17:29] LABS: BACTERIA,URINE Many /HPF (None Seen); SQUAMOUS EPITHELIAL CELL,UR Many /LPF (None Seen)
[2019-03-12 17:30] LABS: AMPHET/METH SCREEN,URINE POSITIVE (NEGATIVE); BARBITURATE SCREEN, URINE NEGATIVE (NEGATIVE); BENZODIAZEPINES SCREEN,URINE NEGATIVE (NEGATIVE); CANNABINOID SCREEN,URINE POSITIVE (NEGATIVE); COCAINE SCREEN,URINE NEGATIVE (NEGATIVE); METHADONE SCREEN, URINE NEGATIVE (NEGATIVE); OPIATE SCREEN,URINE NEGATIVE (NEGATIVE)
[2019-03-12 17:32] LABS: PHENCYCLIDINE SCREEN,URINE NEGATIVE (NEGATIVE)
[2019-03-12] MEDS ORDERED: AMOX TR/POT CLAV 875 MG/125 MG TABLET PO ONE (19:15)
[2019-03-12 19:19] VITALS: BP 112/74
== END 2019-03-12 19:32 | disposition home or self-care (01) ==
LOC: EMS 14:29
DX: J32.9 Chronic sinusitis, unspecified (principal); M79.89 Other specified soft tissue disorders; F19.10 Other psychoactive substance abuse, uncomplicated; F17.210 Nicotine dependence, cigarettes, uncomplicated; F31.9 Bipolar disorder, unspecified; F12.90 Cannabis use, unspecified, uncomplicated; Z88.1 Allergy status to other antibiotic agents; Z88.8 Allergy status to other drugs, medicaments and biological substances
CPT/HCPCS: 36415; 70450; 80053; 80307; 81001; 83605; 83690; 84145; 84702; 85025; 87040; 87086; 99284; 99406; J7030